=== PATIENT | female | born 2000 | race Caucasian/White ===

== ENCOUNTER 2019-09-21 19:50 | Emergency (ER) | payer BC ==
--- NOTE | 2019-09-21 21:10 | ED ---
Allergic Reaction/Systemic - HPI Summary HPI Summary: Patient is a 19 y/o F presenting to the ED for a chief complaint of allergic reaction. Patient is present with a friend. Patient admits nausea, bumps on the bilateral UE and LE, and diarrhea. On 09/20/19, her friend noticed the patient had pallor. She has abdominal pain that is at baseline. Patient denies fever, sore throat, cough, or dysuria. She believes she is having an allergic reaction. Patient denies taking Benadryl or other OTC medications. No aggravating or alleviating factors are reported. PMHx is significant for anemia for which she began taking iron supplements one month ago. Any significant PSHx is denied. She currently has her menstrual period. Patient denies alcohol, tobacco, or drug use. Medications reviewed. Allergies noted. - History of Current Complaint Chief Complaint: EDAllergicReaction Time Seen by Provider: 09/21/19 21:00 Hx Obtained From: Patient Onset/Duration: Sudden Onset, Still Present Timing: Constant Severity Initially: Mild Severity Currently: None Pain Intensity: 0 Pain Scale Used: 0-10 Numeric Aggravating Factor(s): Nothing Alleviating Factor(s): Nothing Associated Signs And Symptoms: Positive: Abdominal Pain - At baseline, Nausea, Rash - Bumps on the bilateral UE and LE - Allergies/Home Medications Allergies/Adverse Reactions: Allergies Allergy/AdvReac Type Severity Reaction Status Date / Time No Known Allergies Allergy Verified 09/21/19 19:55 PMH/Surg Hx/FS Hx/Imm Hx Previously Healthy: Yes Endocrine/Hematology History: Reports: Hx Anemia Denies: Hx Diabetes Sensory History: Denies: Hx Legally Blind, Hx Deafness Opthamlomology History: Denies: Hx Legally Blind EENT History: Denies: Hx Deafness - Surgical History Surgical History: None Surgery Procedure, Year, and Place: None Infectious Disease History: No Infectious Disease History: Denies: Traveled Outside the [place] in Last 30 Days - Family History Known Family History: Negative: Renal Disease - Social History Occupation: Student Lives: Dormitory/Roommates Alcohol Use: None Hx Substance Use: No Substance Use Type: Reports: None Hx Tobacco Use: No Smoking Status (MU): Never Smoked Tobacco Review of Systems Positive: Other - Positive pallor. Negative: Fever Negative: Sore Throat Negative: Cough Positive: Abdominal Pain - At baseline, Diarrhea, Nausea Negative: dysuria Positive: Rash - Positive bumps on the bilateral UE and LE All Other Systems Reviewed And Are Negative: Yes Physical Exam - Summary Physical Exam Summary: Constitutional: Well-developed, Well-nourished, Alert. (-) Distressed. Patient is sitting with her head over a vomiting bag. Skin: Warm, Dry HENT: Normocephalic; Atraumatic Eyes: Conjunctiva normal Neck: Musculoskeletal ROM normal neck. (-) JVD, (-) Stridor, (-) Tracheal deviation Cardio: Rhythm regular, rate normal, Heart sounds normal; Intact distal pulses; Radial pulses are 2+ and symmetric. (-) Murmur Pulmonary/Chest wall: Effort normal. (-) Respiratory distress, (-) Wheezes, (-) Rales Abd: Soft, (-) tenderness, (-) Distension, (-) Guarding, (-) Rebound Musculoskeletal: (-) Edema Lymph: (-) Cervical adenopathy Neuro: Alert, Oriented x3 Psych: Mood and affect Normal Triage Information Reviewed: Yes Vital Signs On Initial Exam: Initial Vitals Temp Pulse Resp BP Pulse Ox 98.5 F 80 18 114/83 99 09/21/19 19:52 09/21/19 19:52 09/21/19 19:52 09/21/19 19:52 09/21/19 19:52 Vital Signs Reviewed: Yes Procedures - Sedation Patient Received Moderate/Deep Sedation with Procedure: No Diagnostics - Vital Signs Vital Signs Temp Pulse Resp BP Pulse Ox 09/21/19 19:52 98.5 F 80 18 114/83 99 - Laboratory Lab Statement: Any lab studies that have been ordered have been reviewed, and results considered in the medical decision making process. Allergic Reaction Course/Dx - Diagnoses Provider Diagnoses: Nausea, Diarrhea Discharge ED - Sign-Out/Discharge Documenting (check all that apply): Patient Departure - Discharge - Discharge Plan Condition: Stable Disposition: HOME Prescriptions: Dicyclomine CAP* [Bentyl CAP*] 10 mg PO TID PRN #20 cap PRN Reason: abdominal cramping Ondansetron ODT TAB* [Zofran 4 MG Odt TAB*] 4 mg PO Q8H PRN #12 tab.odt PRN Reason: Nausea Patient Education Materials: Acute Nausea and Vomiting (ED) Referrals: [facility] [Primary Care Provider] - Additional Instructions: PLEASE RETURN TO EMERGENCY DEPARTMENT FOR SEVERE ABDOMINAL PAIN, YOU CANNOT DRINK ANYTHING FOR 12 HOURS, OR ANY NEW OR WORSENING SYMPTOMS. Please follow up with [facility] for your anemia and symptoms. Please make all follow- ups in 1-3 days unless I advise you otherwise. Take your Bentyl and Zofran as prescribed. - Attestation Statements Document Initiated by Scribe: Yes Documenting Scribe: Cathy Campbell Provider For Whom Scribe is Documenting (Include Credential): Dany Quiñonez MD Scribe Attestation: I, Cathy Campbell, scribed for Dany Quiñonez MD on 09/21/19 at [id number]. Status of Scribe Document: Ready
[2019-09-21] MEDS ORDERED: diPHENhydraMINE PO* 25 MG PO ONE (21:11)
[2019-09-21] MEDS ORDERED: Ondansetron ODT TAB* 4 MG PO ONE ×2 (21:11→21:40)
[2019-09-21] MEDS ORDERED: Dicyclomine CAP* 10 MG PO ONE (21:40)
[2019-09-21 21:53] LABS: Influenza A Molecular NEGATIVE (Negative); Influenza B Molecular NEGATIVE (Negative)
[2019-09-21 22:04] VITALS: BP 119/74
== END 2019-09-21 22:03 | disposition home or self-care (01) ==
LOC: ED 19:50
DX: R11.0 Nausea (principal); R19.7 Diarrhea, unspecified; D64.9 Anemia, unspecified
CPT/HCPCS: 99282; A9270-GY